=== PATIENT | female | born 1985 | race Caucasian/White ===

== ENCOUNTER 2017-03-31 18:35 | Emergency (ER) | payer MEDICAID ==
[~2017-03-31] VITALS: Ht 160 cm; Wt 86.0 kg
[2017-03-31 18:48] VITALS: BP 146/86
== END 2017-03-31 19:45 | disposition home or self-care (01) ==
LOC: ER 19:38
DX: B00.9 Herpesviral infection, unspecified (principal); R51 Headache; F41.9 Anxiety disorder, unspecified; F17.200 Nicotine dependence, unspecified, uncomplicated
CPT/HCPCS: 99281

== ENCOUNTER 2019-02-07 13:04 | Emergency (ER) | payer MEDICAID ==
[~2019-02-07] VITALS: Ht 157.5 cm; Wt 111.0 kg
[2019-02-07 14:14] VITALS: BP 125/71
== END 2019-02-07 20:10 | disposition left against medical advice (07) ==
LOC: ER 14:05
DX: R10.9 Unspecified abdominal pain (principal); Z53.21 Procedure and treatment not carried out due to patient leaving prior to being seen by health care provider

== ENCOUNTER 2019-12-19 12:44 | Emergency (ER) | payer MEDICAID ==
[~2019-12-19] VITALS: Ht 160 cm; Wt 86.0 kg
[2019-12-19] MEDS ORDERED: FAMOTIDINE 20MG/2ML VIAL IV STA (14:22)
[2019-12-19] MEDS ORDERED: KETOROLAC 30MG/ML VIAL IV STA (14:22)
[2019-12-19] MEDS ORDERED: SODIUM CHLORIDE 0.9% 1,000 ML IV ONE (14:22)
[2019-12-19 14:36] LABS: BASOPHILS % 0.6 % (0.0-2.0); CLARITY URINE CLEAR (CLEAR); COLOR URINE YELLOW (YELLOW); EOSINOPHILS % 1.8 % (0.0-5.0); HEMATOCRIT. 34.8 % (36.0-48.0); HEMOGLOBIN. 11.3 g/dL (12.0-16.0); KETONES URINE NEGATIVE (NEGATIVE); LEUKOCYTE ESTERASE URINE NEGATIVE (NEGATIVE); MEAN CORPUSCULAR HEMOGLOBIN 22.8 pg (28.0-32.0); MEAN CORPUSCULAR VOLUME 70.5 fL (81.0-99.0); MEAN PLATELET VOLUME 9.1 fl (7.4-10.4); MONOCYTES % 9.5 % (2.0-8.0); NEUTROPHILS % 59.1 % (40.0-76.0); NITRITE URINE NEGATIVE (NEGATIVE); OCCULT BLOOD URINE NEGATIVE (NEGATIVE); PLATELET 309 x1000/uL (130-400); PROTEIN URINE NEGATIVE (NEGATIVE); RED BLOOD CELL COUNT 4.94 mill/uL (4.2-5.4); RED CELL DISTRIBUTION WIDTH 16.7 % (11.6-14.6); SPECIFIC GRAVITY URINE 1.023 (1.005-1.030); UROBILINOGEN URINE 0.2 E.U./dL (0.2-1.0)
[2019-12-19 14:41] LABS: CHLORIDE 108 mEq/L (98-107)
[2019-12-19 14:43] LABS: INR 1.1; PROTHROMBIN TIME 11.9 sec (9.6-11.0)
[2019-12-19 14:55] LABS: HCG SCREEN NEGATIVE
[2019-12-19 16:15] VITALS: BP 121/84
== END 2019-12-19 16:15 | disposition home or self-care (01) ==
LOC: ER 12:44
DX: K80.20 Calculus of gallbladder without cholecystitis without obstruction (principal); R11.10 Vomiting, unspecified; Z98.51 Tubal ligation status
CPT/HCPCS: 36415; 71045; 76705; 80053; 81003; 81025; 83690; 84703; 85025; 85610; 93005; 96374; 96375; 99285; J1885; J3490; J7030